=== PATIENT | female | born 1955 | race Caucasian/White ===

== ENCOUNTER 2017-07-17 09:39 | Day surgery (SDC) | payer OTHER ==
[~2017-07-17] VITALS: Ht 147.3 cm; Wt 53.1 kg
[~2017-07-17 09:39] MED LIST: AMBIEN10 MG PO; CALCIUM500 M4 PO; EFFEXOR XR150 MG PO; ULTRAM50 MG PO; VITAMIN D2000 UNIT PO
== END 2017-07-17 10:50 | disposition home or self-care (01) ==
LOC: PAIN 09:39
DX: M47.816 Spondylosis without myelopathy or radiculopathy, lumbar region (principal); M54.5 Low back pain; G89.29 Other chronic pain; M51.36 Other intervertebral disc degeneration, lumbar region; M48.06 Spinal stenosis, lumbar region; M47.812 Spondylosis without myelopathy or radiculopathy, cervical region; M47.814 Spondylosis without myelopathy or radiculopathy, thoracic region; M85.80 Other specified disorders of bone density and structure, unspecified site; M62.830 Muscle spasm of back; Z79.891 Long term (current) use of opiate analgesic; R73.09 Other abnormal glucose; F41.8 Other specified anxiety disorders; Z88.0 Allergy status to penicillin
CPT/HCPCS: J1030; J2250; J3010; S0020

== ENCOUNTER 2017-07-24 09:31 | Day surgery (SDC) | payer OTHER ==
[~2017-07-24] VITALS: Ht 147.3 cm; Wt 53.1 kg
== END 2017-07-24 11:15 | disposition home or self-care (01) ==
LOC: PAIN 09:31 → SDC 10:00 → PAIN 11:15
DX: M47.816 Spondylosis without myelopathy or radiculopathy, lumbar region (principal); M54.5 Low back pain; G89.29 Other chronic pain; M51.36 Other intervertebral disc degeneration, lumbar region; M62.830 Muscle spasm of back; M85.80 Other specified disorders of bone density and structure, unspecified site; F41.8 Other specified anxiety disorders; M48.06 Spinal stenosis, lumbar region; M47.812 Spondylosis without myelopathy or radiculopathy, cervical region; M47.814 Spondylosis without myelopathy or radiculopathy, thoracic region; R73.09 Other abnormal glucose; Z79.891 Long term (current) use of opiate analgesic
CPT/HCPCS: J1030; J2250; J3010; S0020

== ENCOUNTER → 2018-05-06 | Outpatient (CLI) | payer BC | END | disposition home or self-care (01) | LOC: RES 12:58 | DX: Z51.81 Encounter for therapeutic drug level monitoring (principal); R06.09 Other forms of dyspnea | CPT/HCPCS: 94060; 94726; 94729 ==